=== PATIENT | female | born 1940 | race African-American/Black ===

== ENCOUNTER 2019-11-24 15:30 | Emergency (ER) | payer MEDICARE ==
[~2019-11-24] VITALS: Ht 160 cm; Wt 75.3 kg
[2019-11-24] MEDS ORDERED: CLONIDINE HCL 0.2 MG TAB PO ONE (16:15)
[2019-11-24] MEDS ORDERED: HYDROCODONE/APAP 5MG-325MG TAB PO ONE (16:15)
[2019-11-24] MEDS ORDERED: CLONIDINE HCL 0.1 MG TAB ONE (16:23)
--- NOTE | 2019-11-24 16:50 | Diagnostic Imaging Report ---
Hip complete Indication: 5 days of left hip pain ^pain ^[id number] ^[id number] Technique: AP and frogleg views of left hip obtained. Comparison: None Findings: Left hip remains properly located. The cortex appears intact throughout. Trochanters appear intact. Minimal spurring evident from the superior acetabulum. Adjacent pubic rami appear intact. Lower lumbar spine demonstrates mild degenerative changes. The right hip is intact and normally positioned with minimal spurring from the superior acetabulum. There is a single surgical clip in the left hemiabdomen. Visualized bowel gas pattern is unremarkable. IMPRESSION: Left hip is properly located. No convincing evidence of fracture. Mild degenerative changes of the hips and lower lumbar spine. Signed by: Dr. Leah Lopez MD on 11/24/2019 4:47 PM
--- NOTE | 2019-11-24 18:29 | Emergency Department Note ---
History of Present Illnes History of Present Illness Chief Complaint: Extremity Trauma/Pain History of Present Illness This is a 79 year old female left leg pain and left hip pain . Historian: Patient Arrival Mode: Car Onset (how long ago): day(s) Location: left hip Quality: sharp Radiation: Denies non-radiation, Denies back, Denies neck, Denies extremity, Denies abdomen, Denies periumbilical, Denies flank, Denies proximal, Denies distal, Denies other Severity: moderate Onset quality: gradual Duration (how long): day(s) (2) Timing of current episode: constant Progression: waxing and waning Chronicity: new Context: Denies recent illness, Denies recent surgery, Denies recent immobilization, Denies recent travel, Denies trauma/injury, Denies new medications, Denies hx of DVT/PE, Denies non-compliance w/ medications, Denies other Relieving factors: none Exacerbating factors: none Associated symptoms: Reports denies other symptoms Treatments prior to arrival: none Past Medical/Family History Physician Review I have reviewed the patient's past medical and family history. Any updates have been documented here. Past Medical History Recent Fever: No Clinical Suspicion of Infectio: No New/Unexplained Change in Ment: No Past Medical History: Hypertension, GERD, Hyperlipedemia, Osteoarthritis Other Medical History: LEAKING HEART VALVE Past Surgical History: Cholecysctectomy, Hysterectomy Social History Smoking Cessation: Never Smoker Counseling Performed: No Alcohol Use: None Any Illegal Drug Use: No TB Exposure/Symptoms: No Physically hurt or threatened: No Other Last Tetanus: UNK Any Pre-Existing Lines (PICC,: No Is patient up to date on immun: Yes Last Flu: 2019 Last Pneumovax: UNK Review of Systems Review of Systems Constitutional: Reports no symptoms EENTM: Reports no symptoms Cardiovascular: Reports no symptoms Respiratory: Reports no symptoms Gastrointestinal: Reports no symptoms Genitourinary: Reports no symptoms Musculoskeletal: Reports as per HPI Integumentary: Reports no symptoms Neurological: Reports no symptoms Psychological: Reports no symptoms Endocrine: Reports no symptoms Hematological/Lymphatic: Reports no symptoms Physical Exam Related Data Allergies: Coded Allergies: tramadol (Verified Allergy, Mild, ITCH, 06/20/19) Triage Vital Signs Vital Signs Date Time Temp Pulse Resp B/P (MAP) Pulse Ox O2 Delivery O2 Flow Rate FiO2 11/24/19 15:38 97.9 71 18 227/107 98 Vital signs reviewed: Yes Physical Exam CONSTITUTIONAL Constitutional: Present well-developed, Present well-nourished HENT HENT: Present normocephalic, Present atraumatic, Present oropharynx clear/moist, Present nose normal HENT L/R: Present left ext ear normal, Present right ext ear normal EYES Eyes: Reports PERRL, Reports conjunctivae normal NECK Neck: Present ROM normal PULMONARY Pulmonary: Present effort normal, Present breath sounds normal CARDIOVASCULAR Cardiovascular: Present regular rhythm, Present heart sounds normal, Present capillary refill normal, Present normal rate GASTROINTESTINAL Abdominal: Present soft, Present nontender, Present bowel sounds normal GENITOURINARY Genitourinary: Present exam deferred SKIN Skin: Present warm, Present dry MUSCULOSKELETAL Musculoskeletal: Present tenderness NEUROLOGICAL Neurological: Present alert, Present oriented x 3, Present no gross motor or sensory deficits PSYCHOLOGICAL Psychological: Present mood/affect normal, Present judgement normal Results Imaging Imaging results reviewed: Yes Assessment & Plan Medical Decision Making MDM dvt musculoskeletal Reassessment Reassessment time: 18:27 Reassessment better Assessment & Plan Final Impression: (1) Hip pain, left (2) Leg pain, left Depart Disposition: HOME, SELF-CARE Last Vital Signs Date Time Temp Pulse Resp B/P (MAP) Pulse Ox O2 Delivery O2 Flow Rate FiO2 11/24/19 16:23 229/102 11/24/19 15:52 97.9 71 18 98 Medications in the ED Acetaminophen/ Hydrocodone Bitart 1 ea ONCE ONCE PO Last administered on 11/24/19at 16:26; Admin Dose 1 EA; Start 11/24/19 at 16:15; Stop 11/24/19 at 16:25; Status DC Clonidine HCl 0.2 mg ONCE ONCE PO Last administered on 11/24/19at 16:23; Admin Dose 0.2 MG; Start 11/24/19 at 16:15; Stop 11/24/19 at 16:25; Status DC Clonidine HCl 0.2 mg STK-MED ONCE .ROUTE ; Start 11/24/19 at 16:23; Stop 11/24/19 at 16:20; Status DC KEVIN NEAL MD Nov 24, 2019 18:29
[2019-11-24] MEDS ORDERED: CYCLOBENZAPRINE5 MG PO (18:32)
[2019-11-24 19:45] VITALS: BP 158/78
--- NOTE | 2019-11-24 20:09 | Diagnostic Imaging Report ---
EXAM: Left Lower Extremity Venous Duplex Ultrasound INDICATION: ^pain ^Y COMPARISON: None TECHNIQUE: Grimes scale, color Doppler and spectral waveform analysis of the unilateral lower extremity deep venous system was performed. FINDINGS: Common Femoral: Fully compressible with normal spontaneous waveforms. Proximal Greater Saphenous: Fully compressible. Femoral: Fully compressible with normal spontaneous waveforms. Normal response to augmentation. Proximal Deep Femoral: Normal spontaneous waveforms. Popliteal: Fully compressible with normal spontaneous waveforms. IMPRESSION: No evidence of deep venous thrombosis above the left calf. Signed by: Dr. Leah Lopez MD on 11/24/2019 5:11 PM
== END 2019-11-24 19:42 | disposition home or self-care (01) ==
LOC: FSED 15:30
DX: M25.552 Pain in left hip (principal); M79.662 Pain in left lower leg; Y93.H2 Activity, gardening and landscaping; I10 Essential (primary) hypertension; E78.5 Hyperlipidemia, unspecified; K21.9 Gastro-esophageal reflux disease without esophagitis
CPT/HCPCS: 76882; 93971; 99283